=== PATIENT | male | born 1945 | race Caucasian/White ===

== ENCOUNTER → 2019-01-03 13:40 | Outpatient (CLI) | payer MEDICARE, OTHER ==
[~2019-01-03 13:40] MED LIST: DEXILANT60 MG PO; KEFLEX500 MG PO; NORCO 10/325 TA1 TA1 PO; NORCO 5/325 TAB1 TA1 PO; PRAVACHOL20 MG PO; TUMS500 MG PO
== END | disposition home or self-care (01) ==
LOC: D.CT 13:40
DX: R10.9 Unspecified abdominal pain (principal)

== ENCOUNTER → 2021-03-02 08:11 | Outpatient (CLI) | payer MEDICARE, OTHER ==
[2015-12-03 10:21] VITALS: BMI 24.0
== END | disposition home or self-care (01) ==
LOC: D.RAD 08:11
PROVIDERS: ATTEND Internal Medicine Gastroenterology
DX: R13.10 Dysphagia, unspecified (principal)

== ENCOUNTER → 2021-03-07 07:54 | Outpatient (CLI) | payer MEDICARE, OTHER ==
[2015-12-03 10:21] VITALS: BMI 24.0
== END | disposition home or self-care (01) ==
LOC: D.CT 07:54
PROVIDERS: ATTEND Internal Medicine Gastroenterology
DX: R93.89 Abnormal findings on diagnostic imaging of other specified body structures (principal)

== ENCOUNTER 2021-03-18 05:23 | Day surgery (SDC) | payer MEDICARE, OTHER ==
--- NOTE | 2021-03-17 16:08 | NUR ---
ATTEMPTED TO CONFIRM PT APPT FOR 03/18/21 - NO ANSWER
[~2021-03-18] VITALS: Ht 172.7 cm; Wt 72.7 kg
[2021-03-18 05:54] LABS: BASOPHILS 0.4 % (0-2); EOSINOPHILS 2.1 % (0-7); HEMATOCRIT 44.8 % (42.0-54.0); LYMPHOCYTES 23.1 % (15-50); MCH 30.4 pg (26.0-34.0); MCHC 33.4 g/dL (31.0-37.0); MCV 90.8 fL (80.0-100.0); MEAN PLATELET VOLUME 6.7 fL (7.4-10.4); MONOCYTES 6.8 % (2-11); NEUTROPHILS 67.6 % (40-80); RBC 4.93 10x6/uL (4.20-6.10); RDW 15.5 % (11.5-14.5); WBC 5.1 10x3/uL (4.8-10.8)
[2021-03-18 06:05] LABS: APTT 27.5 SECONDS (22.8-39.4); INR 1.11 (0.85-1.17); PROTIME 13.2 SECONDS (11.6-15.0)
[2021-03-18 06:31] LABS: ANION GAP 13.2 mmol/L (8-16); CALCIUM 8.9 mg/dL (8.5-10.1); CARBON DIOXIDE 28.2 mmol/L (21.0-32.0); CREATININE - SERUM 1.2 mg/dL (0.6-1.3); POTASSIUM - SERUM 4.4 mmol/L (3.5-5.1)
[2021-03-18 06:34] VITALS: BP 164/70; Ht 172.7 cm; Wt 72.7 kg
[2021-03-18 06:38] LABS: PLATELET COUNT 231 10x3/uL (130-400)
[2021-03-18] MEDS ORDERED: PEPCID40 MG PO (06:40)
[2021-03-18] MEDS ORDERED: SINEMET 10-1001 EACH PO (07:48)
[2021-03-18] MEDS ORDERED: CARAFATE1 G PO (07:48)
[2021-03-18] MEDS ORDERED: RABEPRAZOLE PO (08:43)
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
--- NOTE | 2021-03-18 10:05 | NUR ---
RESTING QUIETLY, VSS, SATS 97% RA RESPIRATIONS WITH EASE LUNGS CTA, DRESSING TO LEFT BACK X 2 C/D/I PT DENIES PAIN OR NEEDS, CALL LIGHT WITH IN REACH
--- NOTE | 2021-03-18 10:25 | NUR ---
RESTING QUIETLY, VSS, SATS 98% RA LUNGS CTA, RESPIRTATIONS WITH EASE, DRESSING TO LEFT BACK C/D/I, PT DENIES NEEDS OR PAIN, IV INFUSING PER ORDERS, CALL LIGHT WITHIN REACH
--- NOTE | 2021-03-18 10:40 | NUR ---
RESPIRATIONS WITH EASE SATS 96% RA, DRESSINGS C/D/I, VSS, DENIES PAIN OR NEEDS, PT SIPPING PO FLUIDS, SPOUSE AT BEDSIDE, IV INFUSING PER ORDERS, CALL LIGHT WITH IN REACH
--- NOTE | 2021-03-18 11:10 | NUR ---
PT GIVEN SANDWHICH AND PO FLUIDS, VSS, SATS 99% RA RESPIRATONS WITH EASE LUNGS CTA, DRESSING TO BACK X 2 C/D/I, PT DENIES PAIN OR NEEDS, IV INFUSING PER ORDERS, CALL LIGHT WITHIN REACH
--- NOTE | 2021-03-18 11:25 | NUR ---
SITTING UP IN BED VISITING WITH SPOUSE, VSS, SATS 98% RA, RESPIRATIONS WITH EASE LUNGS CTA, DRESSING TO BACK C/D/I, DENIES PAIN OR NEEDS, IV INFUSING PER ORDERS, CALL LIGHT WITHIN REACH, SPOUSE AT BEDSIDE
--- NOTE | 2021-03-18 11:35 | NUR ---
XRAY AT [facility] FOR CXR
--- NOTE | 2021-03-18 12:17 | NUR ---
CXR POST PRCEDURE COMPLETED AND READ SHOW NO PNEUMOTHORAX PER RADIOLGIST
--- NOTE | 2021-03-18 12:52 | NUR ---
VSS, SATS 97% RA LUNGS CTA, RESPIRATIONS WITH EASE, DRESSING TO LEFT SIDE OF BACK C/D/I , PT DENIES PAIN OR NEEDS, IV INFUSING PER ORDERS, CALL LIGHT WITHIN REACH
--- NOTE | 2021-03-18 13:11 | NUR ---
DISCHARGE TEACHING STARTED AND COMPLETED WITH PT AND SPOUSE, VERBALIZED UNDERSTANDING, QUESTIONS AND CONCERNS ADDRESSED
--- NOTE | 2021-03-18 13:30 | NUR ---
PT DISCHARGED PER ORDERS, DRESSING TO BACK C/D/I , LUNGS CTA, SATS 98% RA, 22IV REMOVED FROM LEFT ARM INTACT 2 X 2 DRESSING APPLIED PT DRESSED AN AMBULATEST TO BATHROOM AND VOIDS WITHOUT DIFFICULTY, TAKEN TO FAMILY CAR VIA WHEELCHAIR
== END 2021-03-18 13:30 | disposition home or self-care (01) ==
LOC: D.CT 05:23
PROVIDERS: Radiology Diagnostic Radiology; ATTEND Internal Medicine Pulmonary Disease
DX: J94.8 Other specified pleural conditions (principal); R93.89 Abnormal findings on diagnostic imaging of other specified body structures; K21.9 Gastro-esophageal reflux disease without esophagitis; Z87.891 Personal history of nicotine dependence; G20 Parkinson's disease; R06.09 Other forms of dyspnea

== ENCOUNTER → 2021-03-23 06:54 | Outpatient (CLI) | payer MEDICARE, OTHER ==
[2021-03-18 06:34] VITALS: BMI 24.3
[~2021-03-23 06:54] MED LIST changes: +CARAFATE1 G PO; +PEPCID40 MG PO; +RABEPRAZOLE PO; +SINEMET 10-1001 EACH PO
== END | disposition home or self-care (01) ==
LOC: D.LAB 06:54
PROVIDERS: ATTEND Internal Medicine Pulmonary Disease
DX: J94.8 Other specified pleural conditions (principal)